=== PATIENT | female | born 1995 | race Caucasian/White ===

== ENCOUNTER 2023-01-18 00:08 | Inpatient (IN) | payer MEDICAID, SELFPAY ==
[2023-01-18] VITALS (222 sets, daily range): BP systolic 81–140; BP diastolic 43–109; PULSE 52–122; RESP 16; TEMP 36–36.6; O2SAT 96–100; BMI 38.0
--- NOTE | 2023-01-18 00:45 | LDADM ---
This patient, Seda May, was admitted to Labor/Delivery/Recovery 103 on 01/18/23 at 00:08. Plans for labor, pain management and were discussed with patient. Patient/family oriented to hospital policies and general routines including ID bracelet, bed and alarms, visiting hours, pain management, procedures, bathroom and other care routines, personal items, smoking policy, room service/diet and guest tray routines, security routines, and visiting hours. Patient/Family are encouraged to report perceived risks to care and to ask questions if they do not understand what they are told or what they should do. See OBIX for further documentation.
[2023-01-18 01:45] LABS: Basophils Percent Auto 0.2 % (0.2-1.2); Eosinophils Percent Auto 0.4 % (0-4.4); Hematocrit 32.8 % (37.0-47.0); Hemoglobin 10.8 g/dL (12.0-15.0); Immature Granulocyte Absolute 0.08 K/mm3 (0.00-0.031); Immature Granulocyte Percent A 0.8 % (0-0.5); Lymphocytes Absolute Auto 1.93 K/mm3 (0.9-3.2); Lymphocytes Percent Auto 20.2 % (18.3-44.2); Mean Corpuscular HGB Conc 32.9 g/dl (32-36); Mean Corpuscular Volume 91.1 fl (80-100); Mean Platelet Volume 10.3 fl (7.4-10.4); Monocytes Absolute Auto 0.6 K/mm3 (0.1-0.6); Monocytes Percent Auto 6.3 % (2.6-8.5); Neutrophils Absolute Auto 6.9 K/mm3 (1.3-6.7); Neutrophils Percent Auto 72.1 % (45.5-73.1); Platelet Count Result 264 k/mm3 (150-375); Red Cell Distribution Width 12.8 % (11.5-14.5); White Blood Count 9.6 K/mm3 (4.5-10.0)
[2023-01-18] MEDS: OXYTOCIN 30 UNITS/NS 500 ML 30 UNITS/500 ML BAG 6 UNITS IV CONT (02:00)
[2023-01-18] MEDS: LACTATED RINGERS 1,000 ML 125 ML IV CONT ×3 (02:00→13:31)
[2023-01-18 02:37] LABS: HIV 1/2 Ab P24 Ag Result Negative (Negative)
[2023-01-18] MEDS: ONDANSETRON INJ 4 MG/2 ML VIAL IV PUSH (09:04)
--- NOTE | 2023-01-18 09:33 | WPDOBADMIT ---
Obstetrics - Admit Note Admission Note: Patient presents for EIL at 40 weeks. AROM at 0830 of clear fluid.IUPC placed without issue. SVE record reviewed. No pertinent additions to the history and/or any subsequent changes in the physical findings that are not consistent with the expected course of the were found. Additions to the history and/or subsequent changes in the physical findings follow. None.
--- NOTE | 2023-01-18 10:59 | WPDANESEPPF ---
Anes - Initial Pre Proc Eval Date/Time: 01/18/23 10:59 Surgeon: Paul Malagon MD Pre Op Diagnosis: IOL Patient Data Age: 28 Gender: F Height: 1.7 m Weight: 110.223 kg Last Vital Signs Pulse 61 01/18/23 10:46 BP 114/63 01/18/23 10:46 Pulse Ox 98 01/18/23 10:56 O2 Del Method Room Air 01/18/23 05:52 Allergies Allergy/AdvReac Type Severity Reaction Status Date / Time Red Pepper Allergy Unknown Uncoded 08/10/17 15:49 Laboratory Tests 01/18/23 01:25 WBC 9.6 K/mm3 (4.5-10.0) RBC 3.60 L M/mm3 (4.2-5.4) Hgb 10.8 L g/dL (12.0-15.0) Hct 32.8 L % (37.0-47.0) MCV 91.1 fl (80-100) MCH 30.0 pg (26-34) MCHC 32.9 g/dl (32-36) RDW 12.8 % (11.5-14.5) Plt Count 264 k/mm3 (150-375) MPV 10.3 fl (7.4-10.4) Immature Gran % (Auto) 0.8 H % (0-0.5) Neut % (Auto) 72.1 % (45.5-73.1) Lymph % (Auto) 20.2 % (18.3-44.2) Mitchell % (Auto) 6.3 % (2.6-8.5) Eos % (Auto) 0.4 % (0-4.4) Baso % (Auto) 0.2 % (0.2-1.2) Lymph # (Auto) 1.93 K/mm3 (0.9-3.2) Mitchell # (Auto) 0.6 K/mm3 (0.1-0.6) Eos # (Auto) 0.0 K/mm3 (0-0.3) Baso # (Auto) 0.0 K/mm3 (0.0-0.1) Abs Immat Gran (auto) 0.08 H K/mm3 (0.00-0.031) Absolute Neuts (auto) 6.9 H K/mm3 (1.3-6.7) Absolute Nucleated RBC 0.0 K/mm3 (0.0-0.012) Nucleated RBC % 0.0 % (0.0-0.2) RPR Pending HIV 1&2 Ab/P24 Ag 4thGn Negative (Negative) Blood Type O Positive Antibody Screen Negative Patient hx anesthesia problems: none Family hx anesthesia problems: none Results Review: All pre-operative results and documents have been reviewed as part of the pre-operative evaluation. [facility] Family History Family History Grandparent Family history of cataracts Father Family history of alcoholism Family history of liver disease Family history of kidney disease Social History Social History Smoking packs per day: 1 Smoking cigarettes per day: 20.0 Years smoked: 8 Smoking pack-years: 8.00 Smoking status: Former smoker Tobacco type: cigarettes Second hand tobacco smoke exposure: No Smoking end date: 04/21/22 Alcohol intake: never Substance use: never Lack of Transportation: No Lack of Food: Never True Current Housing: I Have Housing Concerned About Future Housing: No Difficulty Paying Gas/Electric Bills: No Difficulty Paying for Meds: No Currently Unemployed: No Education: High School Diploma/GED Difficulty w/ Childcare or Family Care: No Spiritual care concerns: No Anes - Eval Final PreProcedure Day of Procedure 01/18/23 10:59 Patient weight: obese Heart: regular rate and rhythm Lungs: clear to auscultation Neurological: alert and oriented ASA classification: II Emergent: no Anesthetic plan: proceed Anesthesia type and monitoring: regional epidural and standard monitoring Results Review: All pre-operative results and documents have been reviewed as part of the pre-operative evaluation. Informed Consent: The patient's anesthetic plan and its attendant risks and benefits were discussed with the patient/family/POA. Questions were solicited and answers provided to the satisfaction of the patient/family/POA.
[2023-01-18] MEDS: ACETAMINOPHEN 500 MG TABLET 1000 MG PO (13:55)
[2023-01-18 14:26] LABS: Rapid Plasma Reagin Non-Reactive (NonReactive)
[2023-01-18] MEDS: OXYTOCIN 30 UNITS/NS 500 ML 30 UNITS/500 ML BAG 999 UNITS IV CONT (23:39)
--- NOTE | 2023-01-18 23:55 | PM.OBPRVD ---
OB - Delivery Note Procedure Delivery date: 01/18/23 Procedure: Induction method: AROM and Per Pitocin Protocol Delivery monitor: External FHT and Internal Uterine Route of delivery: Episiotomy description: None Laceration Description: Perineal - 1st Degree Delivery repair: vicryl Specimen: No Quantitative Blood Loss (ml): 50 Anesthesia type: Epidural Disposition: Floor Baby Date of : 01/18/23 Time of : 23:36 Weeks of gestation at delivery: 40 gender: Female presentation: vertex position: Left Occiput Anterior Placenta delivery description: Spontaneous Cord Vessel Description: 3 Vessels and Delayed Cord Clamping score one minute: 7 score five minutes: 9 Narrative: dr. hernandez and sierra cnm at for delivery, mother and baby in stable condition skin to skin
[2023-01-19] VITALS (34 sets, daily range): BP systolic 109–142; BP diastolic 58–112; PULSE 65–185; RESP 16–20; TEMP 36.3–37.2; O2SAT 98–100
[2023-01-19] MEDS: OXYTOCIN 30 UNITS/NS 500 ML 30 UNITS/500 ML BAG 125 UNITS IV CONT (00:02)
[2023-01-19] MEDS: IBUPROFEN 600 MG TABLET PO ×4 (01:46→23:50)
[2023-01-19] MEDS: WITCH HAZEL 40 PADS 1 PAD TOPICAL (01:49)
[2023-01-19] MEDS: BENZOCAINE 20% AER SPR (*SP) 56 GM CAN 1 SPRAY TOPICAL (01:49)
--- NOTE | 2023-01-19 02:06 | OBPPTRN ---
Patient transferred to post room #283 via w/c. Support person present. Oriented to unit, room, information board, rooming in, admission packet and security measures. Patient verbalizes understanding.
[2023-01-19] MEDS: ACETAMINOPHEN 325 MG TABLET 650 MG PO (02:50)
--- NOTE | 2023-01-19 08:17 | PM.OBPNVD ---
OB - PN: Subj Subjective Date/time seen: 01/19/23 08:17 Interval history: pp day 1 doing well c/o muscular pain OB - PN: Obj Data Labs 01/18/23 01:25 Labs: Laboratory Results - last 24 hr 01/18/23 01:25 RPR Non-reactive OB - PN A/P Plan day: 1 Plan: routine care Time Spent With Patient Time: Total time spent is greater than 50% in coordination of care (as documented) at patient's floor/unit and/or counseling patient: Review of Systems Review of Systems: All systems reviewed & are unremarkable except as noted in HPI and below Exam Const: General: cooperative, healthy appearing and comfortable Chest: Chest palpation & inspection: normal inspection of the chest Resp: Effort & Inspection: normal respiratory effort Cardio: Rate: regular rate Rhythm: regular rhythm GI: Other: soft Skin: General skin exam: normal color Neuro: General: patient oriented x3
[2023-01-19] MEDS: CYCLOBENZAPRINE HCL 5 MG TABLET PO ×2 (09:17→17:28)
[2023-01-19 09:49] LABS: Hematocrit 30.3 % (37.0-47.0)
--- NOTE | 2023-01-19 11:45 | PC.NURSE ---
Patient sleeping with in her arms when this RN went in to assess . Patient tapped on the arm and woken up by this RN and educated about safe sleep precautions for newborns. Patient states she is fine where she is . Patient agreeable to have this RN place in bassinet for assessment and leave her in there while she rests.
--- NOTE | 2023-01-19 13:36 | PC.NURSE ---
[id number] Introductions were made and mother states she is bottle feeding until her milk comes in. Mother has been instructed prior to meeting LC on the importance of consistent pumping to protect her milk supply. LC asked mother to call for a flange fit the next time she pumps. Mother voiced understanding of the information, request and states she doesn't have pain with pumping. Name was written on the communication board.
[2023-01-20] MEDS: CYCLOBENZAPRINE HCL 5 MG TABLET PO ×2 (00:15→09:53)
[2023-01-20] MEDS: DOCUSATE SODIUM 100 MG CAPSULE PO ×2 (04:34→09:50)
[2023-01-20] MEDS: ACETAMINOPHEN 325 MG TABLET 650 MG PO ×2 (04:34→09:50)
--- NOTE | 2023-01-20 07:28 | PC.NURSE ---
Entered mom's room to take VS and noticed that she was asleep in bed holding the baby. Woke mom to tell her RN wanted to take her VS and RN asked if I could put baby in the crib and advised mom to not sleep with baby in her arms. Mom would not let RN put baby in the crib but would let RN take her VS. Mom's VS taken. Mom alert and oriented x3 during interaction.
[2023-01-20 07:31] VITALS: BP 112/68; PULSE 65; RESP 18; TEMP 36.1; O2SAT 98
--- NOTE | 2023-01-20 08:30 | PC.NURSE ---
Pt introductions made and plan of care discussed per post , pain management, breast feeding, daily care activities and pending discharge to home. PT sole recipient of such instructions and no barriers to learning identified at this time. PT received such instructions per one to one discussion, mom baby care guide and demonstrations this shift. PT verbalized understanding of such care.
--- NOTE | 2023-01-20 09:03 | PM.OBPNVD ---
OB - PN: Subj Subjective Date/time seen: 01/20/23 09:03 Interval history: pp day 2 doing well c/o muscular pain would like d/c home OB - PN: Obj Data Labs 01/19/23 09:28 Labs: Laboratory Results - last 24 hr 01/19/23 09:28 Hgb 10.0 L Hct 30.3 L OB - PN A/P Plan day: 2 Plan: routine care and discharge home Time Spent With Patient Time: Total time spent is greater than 50% in coordination of care (as documented) at patient's floor/unit and/or counseling patient: Review of Systems Review of Systems: All systems reviewed & are unremarkable except as noted in HPI and below Exam Const: General: cooperative and healthy appearing Resp: Effort & Inspection: normal respiratory effort Cardio: Rate: regular rate Neuro: General: patient oriented x3
--- NOTE | 2023-01-20 09:05 | P.DS_ITS ---
DS: Admitting Diagnosis Discharge Date 01/20/23 Admitting Diagnosis IOL DS: Discharge Diagnosis Discharge Diagnosis (1) Vaginal delivery: Code(s): O80 - Encounter for full-term uncomplicated delivery Status: Acute (2) Muscular pain: Code(s): M79.10 - Myalgia, unspecified site Status: Acute OB - DS: Summary OB Procedures : None OB Procedures Intrapartum: Spontaneous Vag Delivery OB Procedures: : None Peripartum Data Laceration Description: Perineal - 1st Degree Episiotomy description: None Time Spent with Patient Time attestation: Total time spent providing and/or coordinating discharge services: DS: Data Data Completed and Pending Labs on day of discharge: Labs from last 24 hours 01/19/23 09:28 Hgb 10.0 L Hct 30.3 L Discharge Plan Discharge Attending physician on discharge: Lissy Rodriguez Discharging Clinician: Chelsea Villarreal Patient Disposition: Home, Self-Care Activity: pelvic rest Diet: regular Patient Instructions: Antibiotic Form Stand Alone Forms: General Discharge Information Follow-up/Referrals: Paul Malagon MD [Physician] - 4 Weeks Discharge Medications: New ibuprofen 600 mg Tablet 600 mg PO Q6H PRN (Reason: Cramping) Qty: 30 0RF cyclobenzaprine 5 mg tablet 5 mg PO TID PRN (Reason: muscle spasm) Qty: 14 0RF Date of admission: 01/18/23 00:08 Primary Care Provider: PHYSICIAN,KEEL PRESS OPERATOR Admitting Provider: Paul Malagon Attending physician on admission: Paul Malagon Condition: Stable
[2023-01-20] MEDS: MULTIVIT/MIN/PREN/FOL AC/IRON TABLET 1 TAB PO (09:52)
[2023-01-20] MEDS: IBUPROFEN 600 MG TABLET PO (09:52)
--- NOTE | 2023-01-20 11:32 | PCCCNOTE ---
Addendum entered by KEON Nation 01/20/23 11:34: Pt. also reports having supportive families to help. Original Note: Care Coordination note. Patient referred to CC for late care. Met with pt. and FOB at bedside. They report living in [facility], but wanted to have baby with our HOUSE RN. She even has naval gunfire liaison officer here. They plan to return home together today. They have all necessary baby care items and deny any needs. She has started process with WIC as well.
--- NOTE | 2023-01-20 14:00 | PC.NURSE ---
Patient downloaded the discharge video Mother & Baby Care, The First Two Weeks . Patient was given the opportunity and encouraged to ask questions. Patient verbalized understanding of information shared and has been given the mother/baby guide for home reference.
--- NOTE | 2023-01-20 14:30 | PC.NURSE ---
PT discharged to home ambulatory accompanied by fob and infant and walked to waiting car. Follow up appts confirmed
== END 2023-01-20 14:30 | disposition home or self-care (01) | DRG 560 ==
LOC: ANHOB2 01-20 09:14 → ANHLDR 01-21 11:21 → ANHOB2 01-21 11:21
PROVIDERS: Advanced Practice Midwife; Admitting Provider Obstetrics & Gynecology; Visit Provider Obstetrics & Gynecology
DX: O70.0 First degree perineal laceration during delivery (principal); Z37.0 Single live birth; M79.10 Myalgia, unspecified site; Z3A.40 40 weeks gestation of pregnancy; O99.893 Other specified diseases and conditions complicating puerperium
CPT/HCPCS: 36415; 85014; 85018; 85025; 86592; 86703; 86850; 86900; 86901; A9270; G0432; J2405; J2590; J2795; J7120

== ENCOUNTER 2024-09-24 06:08 | Inpatient (IN) | payer MEDICAID, SELFPAY ==
[2024-09-24] VITALS (189 sets, daily range): BP systolic 81–126; BP diastolic 25–110; PULSE 48–204; RESP 18; TEMP 36.2–36.9; O2SAT 85–100; BMI 37.9
--- OUTSIDE RECORDS SUMMARY | 2024-09-24 06:15 | XMS_ITS | Clinical Summary ---
Author Organization [facility] Address [address] [place] [id number] Care Team Providers Care Sludge Filtration Attendant Name Role Phone Unavailable Primary Care Provider Unavailabl e Social History Tobacco Use Types Packs/Day Years Used Date Smoking Tobacco: Never Assessed Comments Unknown Sex and Gender Information Value Date Recorded Sex Assigned at Not on file Legal Sex Female 4:38 PM CDT Gender Identity Not on file Sexual Orientation Not on file Last Filed Vital Signs Vital Sign Reading Time Taken Comments Blood Pressure 92/62 06/24/2015 4:46 PM CDT Pulse 71 06/24/2015 4:46 PM CDT Temperature - - Respiratory Rate - - Oxygen Saturation - - Inhaled Oxygen Concentration - - Weight 93.4 kg (206 lb) 06/24/2015 4:46 PM CDT Height 172.7 cm (5' 8) 06/24/2015 4:46 PM CDT Body Mass Index 31.32 06/24/2015 4:46 PM CDT Plan of Treatment Health Maintenance Due Date Last Done Comments Cervical Cancer Screening Pa p Smear (Age 30 to 64) Every 3 Years 1994 Annual Physical 1997 Hepatitis C 01/15/2012 DTaP, Tdap and Td Vaccines ( 1 - Tdap) 2013 Hepatitis B Vaccines (1 of 3 - 19+ 3-dose series) 2013 COVID-19 Vaccine (2023-2 5 season) 2023 Cervical Cancer Screening Pa p with HPV Testing (Age 30 to 64) Every 5 Years 01/15/2024 Cervical Cancer Screening with HPV 01/15/2024 HPV Vaccines Aged Out No longer eligi ble based on patient's age to complete this topic Meningococcal B Vaccine Aged Out No l onger eligible based on patient's age to complete this topic Meningococcal Vaccine Aged Out No andie omar eligible based on patient's age to complete this topic Pneumococcal Vaccine: Pediat rics (0 to 5 Years) and At-Risk Patients (6 to 49 Years) Aged Out No longer eligible b ased on patient's age to complete this topic RSV Immunizations Under 20 Months Aged Out No longer eligible based on patient's age to complete this topic
--- OUTSIDE RECORDS SUMMARY | 2024-09-24 06:15 | XMS_ITS | Data Portability ---
Author Organization [facility] [place] Address [address] [place] [address] [place] [address] Assessment No assessment recorded. Plan of Treatment Reminders Order Date Submit Date Provider Last Modified By Organization Details Last Modified Time Details Appointments INDUCTION 2024 06:00A M LUPE LAYNE MD Not available Not available Not available Lab None recorded. Referral None recorded. Procedures None recorded. Surgeries None recorded. Imaging non-stres s test 2024 025 [place], [address], [place], [address], 09/19/2024 04:41:02 US, obstetric , biophysic al profile + non-stres s test 2024 025 [email or web address] [place] [facility] [address], [place], [address], 09/18/2024 12:07:28 non-stres s test 2024 025 [email or web address] [place], [facility] [address], [place], [address], 09/13/2024 10:20:50 US, obstetric , follow-up 2024 025 ERICKA [place], [address], [place], [address], 09/12/2024 16:13:02 US, obstetric , biophysic al profile + non-stres s test 2024 025 ERICKA [place], [address], [address], [place], [address], 09/12/2024 17:49:52 Medication Orders None recorded. Patient TargetsNo targets recorded. Patient InstructionsNo instructions recorded. Reason for Referral None Reported. Results Created Date Observation Date Name Description Value Unit Range Abnormal Flag Note LastModifiedBy Organization Detail LastModifiedTime 08/29/1908/28/2024 CULTU RE: GROUP B STREP SCREE N, REFLE X SUSCE PTIBI LITY result report SEE RESULT S BELOW abnormal Test: Cultu re: Group B Strep , Refle x Susce ptibi lity ([facility] ) Speci men Sourc e: Vagin a/Rec sudarshan Speci men Type: Vagin al/Re ctal Speci men Date: 2024 1340 Resul t Date: 2024 1625 Resul t Statu s: Final resul t Abnor mal: Yes Resul ting Lab: [facility] [address] [facility] [address] Tel: CULTU RE ----- ----- ----- --- Posit jenny for Strep tococ cus agala ctiae (Grou p B) (Abno rmal) Clind amyci n susce ptibl e, eryth romyc in resis tant. The clind amyci n induc tion test (D-t est) is negat jenny, there fore clind amyci n shoul d be clini gaby effec tive again st this isola te. Not Available [facility] (Lab) [address], [place], [address], 09/01/2024 17:29:00 08/16/19 25 08/15/2024 US, obste tric, follo w-up No observ ation record ed. [email or web address] [place] [address], [place], [address], 08/15/2024 17:31:15 08/16/19 25 08/15/2024 US, obste tric, follo w-up No observ ation record ed. [email or web address] [address], [place], [address], 08/15/2024 21:37:41 09/06/19 25 09/05/2024 non-s tress test No observ ation record ed. [email or web address], [place], [address], 09/05/2024 16:24:24 09/12/19 non-s tress test No observ ation record ed. [email or web address], [place], [address], 09/11/2024 17:16:52 09/13/19 25 09/12/2024 US, obste tric, follo w-up No observ ation record ed. [facility] [address], [place], [address], 09/12/2024 17:49:42 09/13/19 25 09/12/2024 US, obste tric, bioph ysica l profi le + non-s tress test No observ ation record ed. [facility] [address], [place], [address], 09/12/2024 17:49:52 09/13/19 25 09/12/2024 US, obste tric, follo w-up No observ ation record ed. [email or web address] [address], [place], [address], 09/12/2024 17:06:18 09/13/19 25 09/12/2024 non-s tress test No observ ation record ed. [email or web address] [place] [address], [place], [address], 09/12/2024 16:07:38 09/19/19 25 09/18/2024 US, obste tric, bioph ysica l profi le + non-s tress test No observ ation record ed. [email or web address] [place] [address], [place], [address], 09/18/2024 13:07:14 09/19/19 25 09/18/2024 US, obste tric, bioph ysica l profi le + non-s tress test No observ ation record ed. ERICKA [address] [facility], [place], [address], 09/22/2024 14:20:19 09/19/19 25 09/18/2024 non-s tress test No observ ation record ed. [email or web address] [place] [address], [place], [address], 09/18/2024 12:16:50 Result Notes None recorded. Problems Name Problem SNOMED Code Status Onset Date Resolution Date Notes Provider Name and Address Organization Details Recorded Time Pregnanc y 79250152 Completed 202202/02/2023 Adri boyce, [facility] 5 12:45:51 Sciatica 03750230 Completed Britaney Leonardo null, [facility] 3 10:28:06 COVID-19 368004479 Completed Britaney Leonardo null, [facility] 3 10:28:06 Depressi ve disorder 27551824 Completed trazodon e (stopped ) and zoloft Vinitaaney Leonardo null, [facility] 3 10:28:06 Polycyst ic ovary syndrome 422585635 Completed previous ly on metformi n Britaney Leonardo [facility], [facility] 3 10:28:06 Atypical squamous cells of undeterm ined signific ance on cervical Papanico laou smear 847295619 Completed HPV neg 06/2022, repeat 06/2025 Marvel Patterson [facility], [facility] 3 10:28:06 Pregnanc y 64741936 Active 2024 Adri Roa null, [facility] 5 12:45:51 Placenta l finding 435665626 Active cyst Radha Pineda [facility], [facility] 5 22:52:16 Placenta l finding 320383445 Active cyst Radha Pineda [facility], [facility] 5 22:52:16 Placenta circumva llata 7263846 Active mild 32wk growth Radha Pineda [facility], [facility] 5 22:52:40 Placenta circumva llata 5797113 Active mild 32wk growth Radha Pineda [facility], [facility] 5 22:52:40 Group B Streptoc occus carrier 5826417247 103 Active 2024 Treat in labor Radha Pineda [facility] 5 10:48:03 Body mass index 30+ - obesity 898149183 Active 2024 weekly antenata l testing at 37 weeks LUPE LAYNE MD [address], [place], [address], [facility] 5 15:18:01 Problem Notes None recorded. Procedures Surgical History Date Name Laterality Status Provider Name and Address Organization Details Recorded Time 07/12/2022 Date of Last Pap Smear completed Nimisha Godfrey [facility] 12/23/2022 15:20:57 Imaging Results None recorded. Procedure Notes None recorded. Medical Equipment None Reported. Allergies Allergen ID Allergen Name Allergen Category Reaction Reaction Severity Criticality Documentation Date Start Date Code Code System Note Provider Name and Address Organization Details Recorded Time 50264 mold extract environme nt Not available Not available Not available 04/04/2024 76784 8 RxNorm Adri Janina [facility] 15:00:30 No known drug allergies Medications Name Sig Start Date Stop Date Status Note LastModified by Organization Details LastModified Time Prescriptio n - Prior Authorizati on Request active Not Available Not Available N ot Available fluconazole 150 mg tablet TAKE 1 TABLET BY MOUTH 1 DOSE active Not Available Not Available No t Available sertraline 100 mg tablet TAKE 1 TABLET BY MOUTH EVERY DAY active Not Available Not Available No t Available Zoloft 25 mg tablet Take 1 tablet every day by oral route. 11/13 completed Not Available Not Available Not Available sertraline 50 mg tablet TAKE 1 TABLET BY MOUTH EVERY DAY 06/13 completed Not Available Not Available Not Available Tylenol 11/13 completed Not Available Not Available Not Available Complete DHA 29 mg iron-1 mg-200 mg oral pack take 1 pack daily 2024 active Not Available Not Available Not Avai lable Se-Janell 19 Chewable 29 mg iron-1 mg tablet active Not Available Not Available No t Available 85-iron 40 mg,10 mg-folic ac 1 mg-dha 300 mg-fish oil capsule take 1 tablet daily 06/13 completed Not Available Not Available Not Available [employer]-PNV-DHA 28 mg iron-1 mg-200 mg capsule Take 1 capsule every day by oral route as directed for 30 days. 07/11 completed Not Available Not Available Not Available Plus DHA 27 mg iron-1 mg-312 mg-250 mg oral pack Take 1 pack every day by oral route. 06/13 completed Not Available Not Available Not Available Se- 19 29 mg iron-1 mg tablet TAKE 1 TABLET BY MOUTH EVERY DAY 07/11 completed Not Available Not Available Not Available Vitals Date Recorded Body height Body mass index (BMI) Body weight Body height Body mass index (BMI) Body weight Systolic And Diastolic Systolic And Diastolic Provider Name and Address Organization Details Last Updated DateTime 170.18 cm 38.5 kg/m2 368342. 72 g 170.18 cm 38.5 kg/m2 583014. 72 g 98/65 mm[Hg] 98/65 mm[Hg] KARYN Beauchamp [facility] 15:20:46 Date Recorded Body height Body mass index (BMI) Body weight Systolic And Diastolic Provider Name and Address Organization Details Last Updated DateTime 09/18/2024 170.18 cm 38.4 kg/m2 629051.13 g 116/80 mm[Hg] Nimisha Godfrey [facility] 09/18/2024 12:10:14 Social History Question Answer Notes LastModified by Organizat ion Details LastModified Time Tobacco Smoking Status Former Smoker stopped smoking when found out she was Nimisha Godfrey [facility] 12/23/2022 12:45:47 If You Are , What Was Your Level Of Alcohol Consumption Prior To ? Occasional Information not available 07/11/2024 Are You Blind Or Do You Have Difficulty Seeing? No Information not available 04/04/2024 What Is Your Level Of Caffeine Consumption? Occasional [email or web address] Information not available 07/11/2024 In The 14 Days Before Symptom Onset, Have You Had Close Contact With A Laboratory-confi rmed COVID-19 While That Case Was Ill? No [email or web address] Information not available 04/04/2024 In The 14 Days Before Symptom Onset, Have You Had Close Contact With A Person Who Is Under Investigation For COVID-19 While That Person Was Ill? No [email or web address] Information not available 04/04/2024 Have You Been To An Area Known To Be High Risk For COVID-19? No [email or web address] Information not available 04/04/2024 Are You Deaf Or Do You Have Serious Difficulty Hearing? No [email or web address] Information not available 04/04/2024 Do You Use Your Seat Belt Or Car Seat Routinely? Yes [email or web address] Information not available 04/04/2024 Are You Sexually Active? Yes [email or web address] Information not available 04/04/2024 Do You Have Smoke And Carbon Monoxide Detectors In Your Home? Yes [email or web address] Information not available 04/04/2024 Do You Use Sunscreen Routinely? Yes [email or web address] Information not available 04/04/2024 Do You Have Difficulty Walking Or Climbing Stairs? No [email or web address] Information not available 04/04/2024 Sex: Unknown Functional Status Question Answer Note LastModified by Organizat ion Details LastModified Time What is your level of alcohol consumption? None [email or web address] Information not available 07/11/2024 Are you able to walk? YESWOREST [email or web address] Information not available 04/04/2024 Are you able to care for yourself? Yes [email or web address] Information not available 04/04/2024 Do you have difficulty dressing or bathing? No [email or web address] Information not available 04/04/2024 Mental Status None recorded. Family History Relationship Description Onset Age of this Age Resolved Age Notes LastModified by Organization Details LastModified Time Mother Disorder of thyroid gland [email or web address] Not available 2022 14:21:05 Maternal Grandfather Disorder of thyroid gland [email or web address] Not available 2022 14:21:05 Maternal Aunt Disorder of thyroid gland [email or web address] Not available 2022 14:21:05 Medical History Condition Response Allergies (Food, seasonal, environmental ) N Other N Breast Cancer N Drug/Latex Allergies/Reactions N Blood Transfusion N Dermatologic Disorders N Lung Disease N Defects or Inherited Disease N Breast Problem N Gestational Diabetes N Hematologic disorders N Anesthesia Complications N History of STI N Deep Vein Thrombosis N Polycystic ovary syndrome Y Anxiety Disorder Y Autoimmune disease N Arthritis N Infertility N Polyps N Acid Reflux (GERD) N History of abnormal pap N Cancer N Stroke N Varicosities N Neurologic/Epilepsy N Endometriosis N High Cholesterol N Headaches N Fibromyalgia N Kidney Disease N Heart Problems N Kidney or Bladder Problems N Thyroid Problems N GI Problems N Eating Disorder N Anemia N Art (IVF or FET) N Psychiatric Illness N Ovarian Cancer N Diabetes N Pulmonary (TB, Asthma) N Hepatitis/Liver Disease N No Past Medical History N Eczema N Urinary Tract Infection N Abuse/Domestic Violence N Asthma N Trauma/Violence N Depression/ depression Y Heart Disease N Pre-Eclampsia N Hypertension N Osteoporosis N Thrombophilias N Gynecological History Statement/Question Response Abnormal Pap N Date of Last Colonoscopy Date of Last Mammogram Date of LMP 10/10/2023 Sexually Active? Y Date of DEXA bone scan Date of Last Pap Smear 07/12/2022 Sexual Problems? N Current Control Method LMP Approximate Obstetrics History GPAL:G 2 P 1 0 0 1 Type Value Full Term 1 Living 1 Total 2 Past Encounters Encounter ID Performer Location Encounter Start Date Encounter Closed Date Diagnosis/Indication Diagnosis SNOMED-CT Code Diagnosis ICD10 Code Diagnosis Note [id number] Danilo Rodirguez MD [place] [address],[place] [address] 12/23/2022 10:45:14 12/24/2022 10:54:10 Routine care 388513192 Z34.03 screening 2437 72625 Z36.89 [id number] Danilo Rodriguez MD [place] [address],[place] [address] 12/23/2022 10:48:57 12/23/2022 12:40:33 screening 967521676 Z36.3 O09.30 Z3A.36 [id number] LUPE LAYNE MD [place] [address],[place] [address] 01/10/2023 16:30:09 01/11/2023 09:43:59 Gestation period, 39 weeks 77114056 Z3A.39 Depressive disorder 9516 1647 F32.A [id number] MD Alex DAIZ [address],[place] [address] 01/17/2023 17:13:00 01/18/2023 09:21:54 [id number] LUPE LAYNE MD [place] [address],[place] [address] 01/25/2023 17:23:42 01/26/2023 08:47:13 Laceration of vagina 488914720 S31.41XA - laceration well healed, no evidence of dehiscence - recommende d pelvic rest until visit Depressive disorder 9983 3454 F32.A - hx of depression prior to , previously on zoloft and trazodone- discussed baby blues vs depression - EPDS completed, no to question #10- will restart zoloft at 25mg, can increase to 50mg (prior dose) after 2 weeks if needed- discussed safety with breastfeed ing management 278 064922 Z39.1 - discussed pumping q2-3 hours, latching baby when desired- continue supplement ation as needed [id number] LUPE LAYNE MD [place] [address],[facility] [place] [address] 02/18/2023 14:27:34 02/22/2023 09:07:54 care 704426440 Z39.2 S/p 4 weeks ago here today for a visit.1. Patient recovering well2. Plans to continue combo feeding3. Unsure, may be interested in IUD for contracept ion at this time. Risks, benefits, and alternativ es reviewed with the patient. Will call if she decides to go ahead with placement, safe sex practices reviewed4. Patient instructed to follow up in 1 year for well woman exam unless need arises prior Depressive disorder 8970 0390 F32.A - hx of depression prior to , previously on zoloft and trazodone- EPDS 11, stable from last visit- has not yet restarted Zoloft, would like to wait as she feels stable now [id number] LUPE LAYNE MD [place] [address],[place] [address] 11/14/2023 16:15:55 11/15/2023 09:35:41 [id number] Danilo Rodriguez MD [place] [address],[place] [address] 04/02/2024 13:02:16 04/02/2024 13:47:42 screening 091825424 Z36.87 Z3A.15 [id number] LUPE LAYNE MD [place] [address],[facility] [place] [address] 04/04/2024 14:52:05 04/04/2024 15:30:44 test positive 662822405 Z32.01 1. Exam today within normal limits.2. Ultrasound today confirms GA and viability. EDC . GC/Clamydi a testing done: will f/u as indicated. 4. ACOG guidelines and plan of care for reviewed with patient. All questions answered.5 . Return to office in 4-5 weeks for anatomy US6. New OB labs ordered7. Genetic screening: desires. [id number] Danilo Rodriguez MD [place] [address],[place] [address] 05/07/2024 11:23:40 05/07/2024 12:47:53 screening for malformation 934822909 Z36.3 Z3A.20 [id number] LUPE LAYNE MD [place] [address],[place] [address] 05/07/2024 11:24:22 05/10/2024 01:19:50 Routine care 023178253 Z34.02 - continue PNV [id number] LUPE LAYNE MD [place] [address],[place] [address] 06/13/2024 12:17:26 06/13/2024 15:57:55 Right side sciatica 9787579863 59956 M54.31 - worsening pain, has tried heat/ice and massage with no improvemen t- referral sent to pelvic floor PT 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 - previously well controlled with zoloft 50mg- worsening fatigue, depressive symptoms, and lack of motivation - will increase sertraline to 100mg and send psych referral Routine an tenatal care 636759440 Z34.02 - continue PNV Gestation period, 25 weeks 63108564 Z3A.25 [id number] Danilo Rodriguez MD [place] [address],[place] [address] 06/13/2024 12:17:45 06/13/2024 13:19:31 screening 648669679 Z36.2 O99.210 Z3A.25 [id number] Danilo Rodriguez MD [place] [address],[place] [address] 07/11/2024 13:57:18 07/11/2024 14:54:40 anatomy study 386988393 Z36.2 O43.113 Z3A.29 [id number] [facility] [address],[place] [address] 07/11/2024 13:57:35 07/12/2024 11:41:00 Gestation period, 29 weeks 76109223 Z3A.29 continue vitamin [id number] Danilo Rodriguez MD [place] [address],[place] [address] 08/15/2024 14:59:05 08/15/2024 16:13:32 Placenta circumvallata 1265688 O43.113 Z3A.34 [id number] Chelsea Villarreal [facility] [address],[place] [address] 08/15/2024 14:59:22 08/16/2024 16:51:31 Gestation period, 34 weeks 72756859 Z3A.34 [id number] LUPE LAYNE MD [place] [address],[place] [address] 08/28/2024 13:33:04 08/28/2024 14:46:01 Gestation period, 36 weeks 26314602 Z3A.36 - GBS collected- desires EIL on 09/24 [id number] LUPE LAYNE MD [place] [address],[place] [address] 09/04/2024 11:31:40 09/04/2024 12:53:29 Group B Streptococcus carrier 9365599011 103 Z22.330 - antibiotic s in labor Body mass index 30+ - obesity 741679871 Z68.38 - continue weekly testing Gestation period, 37 weeks 28464356 Z3A.37 - continue PNV [id number] Danilo Rodriguez MD [place] [address],[place] [address] 09/05/2024 09:00:08 09/05/2024 16:29:02 Maternal obesity complicating , childbirth and the puerperium, antepartum 3673273667 07 O99.210 E66.89 [id number] LUPE LAYNE MD [place] [address],[place] [address] 09/12/2024 14:06:33 09/12/2024 14:48:12 Placenta circumvallata 5214466 O43.113 O99.213 Z3A.38 [id number] LUPE LAYNE MD [place] [address],[place] [address] 09/12/2024 14:06:43 09/12/2024 15:30:39 Maternal obesity complicating , childbirth and the puerperium, antepartum 4355287733 07 O99.210 [id number] MD Alex DIAZ [address],[place] [address] 09/12/2024 14:07:03 09/12/2024 15:20:53 Placenta circumvallata 2766938 O43.113 O99.213 Z3A.38 - normal growth US today Body mass index 30+ - obesity 823125778 E66.9 - continue weekly testing- BPP 12/28 today Gestation period, 38 weeks 48466569 Z3A.38 - continue PNV [id number] MD Alex DIAZ [address],[place] [address] 09/18/2024 11:07:23 09/18/2024 11:46:39 Obesity 641443791 O99.213 Z3A.39 - continue weekly testing- BPP 12/28 today [id number] MD Ani [place] [address],[place] [address] 09/18/2024 11:07:44 09/18/2024 12:22:49 Maternal obesity complicating , childbirth and the puerperium, antepartum 6944416770 07 O99.210 E66.09 [id number] LUPE LAYNE MD [place] [address],[place] [address] 09/18/2024 11:08:02 09/18/2024 12:56:43 care status 118854133 Z34.83 - continue PNV Health Concerns Section Related Observation LastModified by Organization Detai ls LastModified Time None Recorded Concern Status LastModified by Organization Details LastModified Time None Recorded Advance Directives Directive None Recorded Payers Insurance Date Sequence Insurance Name Policy Number Policy Tamayo Covered Member ID Tamayo Member ID Guarantor Name 08/15/2024 1 [place] DEPARTMENT OF PUBLIC AID Seda May [id number] Seda May 09/18/2024 1 [facility] - DOS ON OR AFTER 20 (MEDICAID REPLACEMENT - HMO) Seda May [id number] Seda May 08/15/2024 [facility] [place] - DOS ON OR AFTER 20 (MEDICAID REPLACEMENT - HMO) Seda May [id number] Seda May OBGyn Episode Ob Episode Information Episode Created Date Number of Fetuses Patient Bloodtype Patient rh Status Prepregnancy Weight lbs Domestic Partner Domestic Partner Phone Father Name Plant Anatomy Teacher Status 12/24/19 23 1 O Positive CLOSED Fetus Data First Name Last Name Admitted to NICU Weight (g) Sex Living Outcome Pediatric Complications Fetus ID Race Codes Race Delivery Type 3260.19 25 F true Full Term [id number] Vaginal Delivery Problems Problem Notes Problem Name Start Date End Date Resolution Snomed Code Not e Depressive disorder 26502741 trazodone (stopped) and zoloft Polycystic ovary syndrome 480922101 previously on metformin Atypical squamous cells of undetermined significance on cervical Papanicolaou smear 422064784 HPV neg 06/2022, repeat 06/2025 COVID-19 210737297 Sciatica 71549613 Angel Calculation Initial Angel Date Initial Exam Date Initial Exam Provider Initial Ultrasound Date Last Menstrual Period Date Ultra Sound Weeks Gestation 01/17/2023 12/23/2022 06/29/2022 11 Eighteen To Twenty Week Angel Update Ultra Sound Date Fundal Height At Umbil Quickening Date Ultra Sound Latest Weeks Gestation Final Angel Confirmed By Final Angel Confirmed Date Final Angel Date Ultra Sound Latest Days Gestation 0 [email or web address] 12/23/2022 01/18/20 23 0 Pre-janell Flowsheet Flowsheet Date 12/23/2022 Thomas Score Blood Edema Fundus Height Fundus Units Glucose Ketones Leukocytes Nitrite Labor Signs Protein Cervic Dilation Cervic Effacement Cervic Station Type Weight in lbs Pre/Post Dialysis Refused Weight 234.287523825410 BP Diastolic BP Location Tested BP Systolic BP Type 73 R arm 124 sitting Fetus Heart Rate Present Fetus Movement Comments 27 year-old 1 at 36 weeks gestation who presents for initial care in our office. She has had some care. The documentation is minimal. Limited OB ultrasound today showed normal anatomy, dating information was available. Growth is good, to evaluate laboratory information to determine if labs are needed. To begin routine care in our office. Flowsheet Date 01/10/2023 Thomas Score Blood Edema Fundus Height Fundus Units Glucose Ketones Leukocytes Nitrite Labor Signs Protein Cervic Dilation Cervic Effacement Cervic Station 2cm 70% -2 Type Weight in lbs Pre/Post Dialysis Refused Weight 239.754656088407 BP Diastolic BP Location Tested BP Systolic BP Type Fetus Heart Rate Present A 130 Fetus Movement Comments Presents for follow up care. No contractions, LOF or VB. Good movement. Discussed spontaneous labor vs EIL. Patient would like EIL at 40 weeks on 01/17 if not in labor prior to that. Dating by 12 week US at previous doctor. Just moved from [place]. Discussed labor signs. EIL scheduled for 01/17 at midnight. Flowsheet Date 01/17/2023 Thomas Score Blood Edema Fundus Height Fundus Units Glucose Ketones Leukocytes Nitrite Labor Signs Protein Cervic Dilation Cervic Effacement Cervic Station Type Weight in lbs Pre/Post Dialysis Refused Weight 243.86336833700 BP Diastolic BP Location Tested BP Systolic BP Type 82 124 Fetus Heart Rate Present A 150 Fetus Movement A Yes Comments Doing well, baby very active . No contractions, LOF, VB. Induction scheduled for midnight tonight, discussed plan. Patient plans on , pump given last visit. All questions answered. Flowsheet Date 01/25/2023 Thomas Score Blood Edema Fundus Height Fundus Units Glucose Ketones Leukocytes Nitrite Labor Signs Protein Cervic Dilation Cervic Effacement Cervic Station Type Weight in lbs Pre/Post Dialysis Refused Weight 221.592791070359 BP Diastolic BP Location Tested BP Systolic BP Type 84 129 Fetus Heart Rate Present Fetus Movement Comments Menstrual History Last Menstrual Date Menses Monthly On Bcp Conception Prior Menses Frequency Hcg Plus Date Menarche Onset Age Genetic Screening And Infection History Question Response Note Mental Retardation/Autism false Patient's Age Will Be 35 Years Or Older At Estim ated Date of Delivery false Thalassemia (Persian, Korean, Mediterranean, Or Background): MCV < 80 false Neural Tube Defect (Meningomyelocele, Spina Bifi da, Or Anencephaly) false Congenital Heart Defect false Down Syndrome false Wyatt-Sachs (eg, Quaker, Cajun, Lithuanian-[place]) f alse Jassi Disease false Sickle Cell Disease Or Trait () false Hemophilia Or Other Blood Disorders false Muscular Dystrophy false Cystic Fibrosis false Jumping Branch's Chorea false Intellectual Disability/Autism false If Yes, Was Person Tested For Fragile X? false Other Inherited Genetic Or Chromosomal Disorder false Maternal Metabolic Disorder (eg, Type 1 Diabetes , PKU) false Patient Or Baby's Father Had A Child With Defects Not Listed Above false Recurrent Loss, Or A Stillbirth false Medications (including Suppl ements, Vitamins, Herbs, OTC Drugs), Illicit/Recreational Drugs, Alcohol false If Yes, Agent(s) And Strength/Dosage false Any Other Genetic History false Live With Someone With TB Or Exposed To TB false Patient Or Partner Has History Of Genital Herpes false Rash Or Viral Illness Since Last Menstrual Perio d false History Of STD, Gonorrhea, Chlamydia, HPV, Syphi lis false Other Infection History false History of HIV false History of Hepatitis false Prior GBS-infected child false Hemoglobinopathy Or Carrier false Other Structural Defect false Recent Travel History Outside of Country false Delivery Information Delivery Date Delivery Type Labor Anesthesia Weeks Gestation Incision Type Labor Labor Length Hrs Delivered By Post Complications Tubal Sterilization Discharge Date Comments 3 Induce d Regional-Ep idural 40.1 false Lupe Layne MD Atypical squamous cells of undetermi sanjiv significa nce on cervical Papanicol aou smear, COVID-19, Depressiv e disorder, Polycysti c ovary syndrome, Sciatica Discharge Information Feeding Method Contraceptive Method Maternal HG B and HCT Levels Ob Episode Information Episode Created Date Number of Fetuses Patient Bloodtype Patient rh Status Prepregnancy Weight lbs Domestic Partner Domestic Partner Phone Father Name Plant Anatomy Teacher Status 05/07/19 25 1 O Positive 228 OPEN Fetus Data First Name Last Name Admitted to NICU Weight (g) Sex Living Outcome Pediatric Complications Fetus ID Race Codes Race Delivery Type [id number] Problems Problem Notes Problem Name Start Date End Date Resolution Snomed Code Not e Placental finding [id number] cy st Placenta circumvallata [id number] mild 32wk growth us Body mass index 30+ - obesity 09/12/2024 [id number] weekly antenata l testing at 37 weeks Group B Streptococcus carrier 09/03/2024 [id number] Treat in labor Angel Calculation Initial Angel Date Initial Exam Date Initial Exam Provider Initial Ultrasound Date Last Menstrual Period Date Ultra Sound Weeks Gestation 09/24/2024 05/07/2024 04/02/2024 15 Eighteen To Twenty Week Angel Update Ultra Sound Date Fundal Height At Umbil Quickening Date Ultra Sound Latest Weeks Gestation Final Angel Confirmed By Final Angel Confirmed Date Final Angel Date Ultra Sound Latest Days Gestation 0 09/25/19 25 0 Pre- Flowsheet Flowsheet Date 05/07/2024 Thomas Score Blood Edema Fundus Height Fundus Units Glucose Ketones Leukocytes Nitrite Labor Signs Protein Cervic Dilation Cervic Effacement Cervic Station Type Weight in lbs Pre/Post Dialysis Refused BP Diastolic BP Location Tested BP Systolic BP Type Fetus Heart Rate Present Fetus Movement Comments Flowsheet Date 05/07/2024 Thomas Score Blood Edema Fundus Height Fundus Units Glucose Ketones Leukocytes Nitrite Labor Signs Protein Cervic Dilation Cervic Effacement Cervic Station neg none Type Weight in lbs Pre/Post Dialysis Refused Weight 230.241333390366 BP Diastolic BP Location Tested BP Systolic BP Type 62 L arm 107 sitting Fetus Heart Rate Present A Present Fetus Movement A Yes Comments Doing well, no issues. No cr amping or bleeding. Anatomy incomplete today, need LVOT and RVOT. Placental cyst and mild circumvallate placenta seen. EFW 58%. Repeat in 4 weeks. LR male NIPT! Other labs wnl at new OB labs. RTC 4 weeks. Flowsheet Date 06/13/2024 Thomas Score Blood Edema Fundus Height Fundus Units Glucose Ketones Leukocytes Nitrite Labor Signs Protein Cervic Dilation Cervic Effacement Cervic Station Type Weight in lbs Pre/Post Dialysis Refused BP Diastolic BP Location Tested BP Systolic BP Type Fetus Heart Rate Present Fetus Movement Comments Flowsheet Date 06/13/2024 Thomas Score Blood Edema Fundus Height Fundus Units Glucose Ketones Leukocytes Nitrite Labor Signs Protein Cervic Dilation Cervic Effacement Cervic Station neg none Type Weight in lbs Pre/Post Dialysis Refused Weight 234.875354615643 BP Diastolic BP Location Tested BP Systolic BP Type 73 L arm 114 sitting Fetus Heart Rate Present A 155 Fetus Movement A Yes Comments Good movement. No cram ping or bleeding. Having worsening pelvic and sciatic pain. Will send referral for pelvic floor PT. Also reports worsening depressive symptoms, including lack of motivation, fatigue and feeling down. No SI/HI. Feels safe at home. Will increase zoloft to 100mg and send referral to psych. EFW 71%, LVOT seen, RVOT poorly visualized; will repeat at next visit. Discussed GCT and labs for next visit. Anechoic placental area unchanged. RTC 3 weeks. Flowsheet Date 07/11/2024 Thomas Score Blood Edema Fundus Height Fundus Units Glucose Ketones Leukocytes Nitrite Labor Signs Protein Cervic Dilation Cervic Effacement Cervic Station Type Weight in lbs Pre/Post Dialysis Refused BP Diastolic BP Location Tested BP Systolic BP Type Fetus Heart Rate Present Fetus Movement Comments Flowsheet Date 07/11/2024 Thomas Score Blood Edema Fundus Height Fundus Units Glucose Ketones Leukocytes Nitrite Labor Signs Protein Cervic Dilation Cervic Effacement Cervic Station neg none Type Weight in lbs Pre/Post Dialysis Refused 239.154249279823 BP Diastolic BP Location Tested BP Systolic BP Type 75 115 Fetus Heart Rate Present Fetus Movement A Yes Comments Patient has had some nausea. anatomy complete, LVEIF not visualized, precautions and education, ok for tdap f/u 2 weeks Flowsheet Date 08/15/2024 Thomas Score Blood Edema Fundus Height Fundus Units Glucose Ketones Leukocytes Nitrite Labor Signs Protein Cervic Dilation Cervic Effacement Cervic Station Type Weight in lbs Pre/Post Dialysis Refused BP Diastolic BP Location Tested BP Systolic BP Type Fetus Heart Rate Present Fetus Movement Comments Flowsheet Date 08/15/2024 Thomas Score Blood Edema Fundus Height Fundus Units Glucose Ketones Leukocytes Nitrite Labor Signs Protein Cervic Dilation Cervic Effacement Cervic Station neg none Type Weight in lbs Pre/Post Dialysis Refused 241.06916910195 BP Diastolic BP Location Tested BP Systolic BP Type 66 100 Fetus Heart Rate Present Fetus Movement A Yes Comments Patient is having back pain and nausea. efw 73%, +FM NST R vertex reviewed US, f/u 2 weeks with gbs Flowsheet Date 08/28/2024 Thomas Score Blood Edema Fundus Height Fundus Units Glucose Ketones Leukocytes Nitrite Labor Signs Protein Cervic Dilation Cervic Effacement Cervic Station neg none 1cm 60% -3 Type Weight in lbs Pre/Post Dialysis Refused Weight 244.506169193402 BP Diastolic BP Location Tested BP Systolic BP Type 65 97 Fetus Heart Rate Present A 145 Fetus Movement A Yes Comments Good movement. No cram ping or bleeding. GBS collected. SVE 1cm. Desires EIL at 40 weeks, will schedule. RTC 1 week. Flowsheet Date 09/04/2024 Thomas Score Blood Edema Fundus Height Fundus Units Glucose Ketones Leukocytes Nitrite Labor Signs Protein Cervic Dilation Cervic Effacement Cervic Station Type Weight in lbs Pre/Post Dialysis Refused Weight 244.039736973126 BP Diastolic BP Location Tested BP Systolic BP Type 85 L arm 129 sitting Fetus Heart Rate Present Fetus Movement Comments Flowsheet Date 09/04/2024 Thomas Score Blood Edema Fundus Height Fundus Units Glucose Ketones Leukocytes Nitrite Labor Signs Protein Cervic Dilation Cervic Effacement Cervic Station Type Weight in lbs Pre/Post Dialysis Refused Weight 244.462030514208 BP Diastolic BP Location Tested BP Systolic BP Type 85 L arm 129 sitting Fetus Heart Rate Present A 135 Fetus Movement A Yes Comments Good movement. No cram ping or bleeding. No LOF. GBS positive, discussed abx in labor. NST reactive. RTC 1 week. Flowsheet Date 09/12/2024 Thomas Score Blood Edema Fundus Height Fundus Units Glucose Ketones Leukocytes Nitrite Labor Signs Protein Cervic Dilation Cervic Effacement Cervic Station Type Weight in lbs Pre/Post Dialysis Refused BP Diastolic BP Location Tested BP Systolic BP Type Fetus Heart Rate Present Fetus Movement Comments Flowsheet Date 09/12/2024 Thomas Score Blood Edema Fundus Height Fundus Units Glucose Ketones Leukocytes Nitrite Labor Signs Protein Cervic Dilation Cervic Effacement Cervic Station Type Weight in lbs Pre/Post Dialysis Refused Weight 246.869483534157 BP Diastolic BP Location Tested BP Systolic BP Type 65 98 Fetus Heart Rate Present Fetus Movement Comments Flowsheet Date 09/12/2024 Thomas Score Blood Edema Fundus Height Fundus Units Glucose Ketones Leukocytes Nitrite Labor Signs Protein Cervic Dilation Cervic Effacement Cervic Station neg none Type Weight in lbs Pre/Post Dialysis Refused Weight 246.149101058207 BP Diastolic BP Location Tested BP Systolic BP Type 65 L arm 98 sitting Fetus Heart Rate Present A Present Fetus Movement A Yes Comments Good movement. No cram ping or bleeding. EFW 78%, vertex, normal. BPP 10/10. RTC 1 week. Flowsheet Date 09/18/2024 Thomas Score Blood Edema Fundus Height Fundus Units Glucose Ketones Leukocytes Nitrite Labor Signs Protein Cervic Dilation Cervic Effacement Cervic Station Type Weight in lbs Pre/Post Dialysis Refused BP Diastolic BP Location Tested BP Systolic BP Type Fetus Heart Rate Present Fetus Movement Comments Flowsheet Date 09/18/2024 Thomas Score Blood Edema Fundus Height Fundus Units Glucose Ketones Leukocytes Nitrite Labor Signs Protein Cervic Dilation Cervic Effacement Cervic Station Type Weight in lbs Pre/Post Dialysis Refused BP Diastolic BP Location Tested BP Systolic BP Type Fetus Heart Rate Present Fetus Movement Comments Flowsheet Date 09/18/2024 Thomas Score Blood Edema Fundus Height Fundus Units Glucose Ketones Leukocytes Nitrite Labor Signs Protein Cervic Dilation Cervic Effacement Cervic Station Type Weight in lbs Pre/Post Dialysis Refused Weight 245.435924728102 BP Diastolic BP Location Tested BP Systolic BP Type 80 L arm 116 sitting Fetus Heart Rate Present A 123 Fetus Movement A Yes Comments Doing well, no issues. Good movement. No bleeding, LOF, or regular contractions. BPP 10/10. Induction on 09/24. Labor precautions reviewed. Menstrual History Last Menstrual Date Menses Monthly On Bcp Conception Prior Menses Frequency Hcg Plus Date Menarche Onset Age Delivery Information Delivery Date Delivery Type Labor Anesthesia Weeks Gestation Incision Type Labor Labor Length Hrs Delivered By Post Complications Tubal Sterilization Discharge Date Comments Discharge Information Feeding Method Contraceptive Method Maternal HG B and HCT Levels
[2024-09-24 06:54] LABS: Hematocrit 34.5 % (37.0-47.0); Hemoglobin 11.1 g/dL (12.0-15.0); Immature Granulocyte Percent A 1.0 % (0-0.5); Lymphocytes Absolute Auto 2.48 K/mm3 (0.9-3.2); Mean Corpuscular HGB Conc 32.2 g/dl (32-36); Mean Corpuscular Hemoglobin 28.4 pg (26-34); Mean Corpuscular Volume 88.2 fl (80-100); Nucleated Red Blood Cells Absolute Auto 0.000 K/mm3 (0.0-0.012); Nucleated Red Blood Cells Perc 0.0 % (0.0-0.2); Platelet Count Result 302 k/mm3 (150-375); Red Blood Count 3.91 M/mm3 (4.2-5.4); White Blood Count 10.5 K/mm3 (4.5-10.0)
--- NOTE | 2024-09-24 06:56 | P.PNAN_ITS ---
Anes - Eval Pre Procedure Procedure: labor epidural Date/Time: 09/24/24 06:56 Surgeon: yolie Preop Diagnosis: pain during labor Pre Op Diagnosis: iol Patient Data Age: 29 Gender: F Height: Weight: Allergies Allergy/AdvReac Type Severity Reaction Status Date / Time Red Pepper Allergy Unknown Uncoded 08/10/17 15:49 Home Medications ?Medication ?Instructions ?Recorded ?Confirmed ?Type cyclobenzaprine 5 mg tablet 5 mg PO TID PRN muscle spasm #14 01/20/23 Rx tabs ibuprofen 600 mg tablet 600 mg PO Q6H PRN Cramping #30 tabs 01/20/23 Rx Laboratory Tests 09/24/24 06:48 WBC Pending RBC Pending Hgb Pending Hct Pending MCV Pending MCH Pending MCHC Pending RDW Pending Plt Count Pending MPV Pending Immature Gran % (Auto) Pending Neut % (Auto) Pending Lymph % (Auto) Pending [place] % (Auto) Pending Eos % (Auto) Pending Baso % (Auto) Pending Lymph # (Auto) Pending [place] # (Auto) Pending Eos # (Auto) Pending Baso # (Auto) Pending Abs Immat Gran (auto) Pending Absolute Neuts (auto) Pending Absolute Nucleated RBC Pending Nucleated RBC % Pending Patient hx anesthesia problems: none Family hx anesthesia problems: none Results Review: All pre-operative results and documents have been reviewed as part of the pre- operative evaluation. [facility] Past Medical History Medical History (Updated 09/24/24 @ 06:57 by Miryam Bearden CRNA) IUP (intrauterine ), incidental Obesity Family History Family History Grandparent Family history of cataracts Father Family history of alcoholism Family history of liver disease Family history of kidney disease Social History Social History Smoking packs per day: 1 Smoking cigarettes per day: 20.0 Years smoked: 8 Smoking pack-years: 8.00 Smoking status: Former smoker Tobacco type: cigarettes Second hand tobacco smoke exposure: No Smoking end date: 04/21/22 Alcohol intake: never Substance use: never Lack of Transportation: No Lack of Food: Never True Current Housing: I Have Housing Concerned About Future Housing: No Difficulty Paying Gas/Electric Bills: No Difficulty Paying for Meds: No Currently Unemployed: No Education: High School Diploma/GED Difficulty w/ Childcare or Family Care: No Spiritual care concerns: No Exam Day of Procedure 09/24/24 06:56
[2024-09-24] MEDS: AMPICILLIN 2 GM/NS 100 ML 2 GM/100 ML BAG IVPB (06:57)
[2024-09-24] MEDS: LACTATED RINGERS 1,000 ML 125 ML IV CONT ×3 (06:57→14:00)
[2024-09-24] MEDS: OXYTOCIN 30 UNITS/NS 500 ML 30 UNITS/500 ML BAG IV CONT (06:58)
[2024-09-24 07:31] LABS: Syphilis IgG/IgM Antibody Non-Reactive (Nonreactive)
--- NOTE | 2024-09-24 08:47 | PM.IMHP ---
H&P: HPI History of Present Illness Date/Time: 09/24/24 08:47 Chief Complaint: elective induction of labor Narrative: Patient is a 29 year old who presents for elective induction of labor. Her has been overall uncomplicated. She denies strong contractions, leakage of fluid, or vaginal bleeding. Good movement. Review of Systems Review of Systems: All systems reviewed & are unremarkable except as noted in HPI and below PMFSH Past Medical History Medical History IUP (intrauterine ), incidental Obesity Family History Family History Grandparent Esophageal cancer Father Family history of kidney disease Family history of liver disease Family history of alcoholism Mother Graves' disease Other Family history of cataracts Social History Social History Smoking packs per day: 1 Smoking cigarettes per day: 20.0 Years smoked: 8 Smoking pack-years: 8.00 Smoking status: Former smoker Tobacco type: cigarettes Second hand tobacco smoke exposure: No Smoking end date: 03/21/22 Alcohol intake: never Substance use: former Do You Feel Safe in your Home?: Yes Lack of Transportation: No Lack of Food: Never True Current Housing: I Have Housing Concerned About Future Housing: No Difficulty Paying Gas/Electric Bills: No Difficulty Paying for Meds: No Currently Unemployed: No Education: High School Diploma/GED Difficulty w/ Childcare or Family Care: No Spiritual care concerns: No Meds Home Medications and Allergies Home Medications ?Medication ?Instructions ?Recorded ?Confirmed ?Type cyclobenzaprine 5 mg tablet 5 mg PO TID PRN muscle spasm #14 01/20/23 09/24/24 Rx tabs ibuprofen 600 mg tablet 600 mg PO Q6H PRN Cramping #30 tabs 01/20/23 09/24/24 Rx vitamins no.119-iron 1 tablet PO DAILY 09/24/24 09/24/24 History fumarate 29 mg-folic acid 1 mg tablet (Se- 19) sertraline 100 mg tablet 100 mg PO DAILY 09/24/24 09/24/24 History Allergies Allergy/AdvReac Type Severity Reaction Status Date / Time mold Allergy Cough Verified 09/24/24 07:05 Red Pepper AdvReac Unknown Headache Uncoded 09/24/24 07:05 Vital Signs Vital Signs - 24 hr 09/24/24 07:00 09/24/24 07:05 09/24/24 07:08 Temperature 97.1 F L Pulse Rate 65 65 Blood Pressure 118/62 118/62 Pulse Oximetry Oxygen Delivery 09/24/24 07:13 09/24/24 07:31 09/24/24 08:01 Temperature Pulse Rate 74 80 Blood Pressure 126/74 121/67 Pulse Oximetry Oxygen Delivery Room Air 09/24/24 08:31 09/24/24 08:39 09/24/24 08:40 Temperature Pulse Rate 72 138 H Blood Pressure 116/67 125/110 H Pulse Oximetry 98 Oxygen Delivery 09/24/24 08:44 09/24/24 08:46 Temperature Pulse Rate 71 Blood Pressure 121/69 Pulse Oximetry 99 Oxygen Delivery Exam Const: General: comfortable and no acute distress Eyes: General: appearance normal, both eyes and all related structures Resp: Effort & Inspection: normal respiratory effort Cardio: Rate: regular rate : Other: SVE /-1 Extrem: General: normal to inspection Psych: Mental Status: mental status grossly normal H&P: Results Labs Labs: Short CBC 09/24/24 Range/Units 06:48 WBC 10.5 H (4.5-10.0) K/mm3 Hgb 11.1 L (12.0-15.0) g/dL Hct 34.5 L (37.0-47.0) % Plt Count 302 (150-375) k/mm3 Assessment and Plan Assessment and plan (1) Encounter for elective induction of labor: Code(s): Z34.90 - Encounter for supervision of normal , unspecified, unspecified trimester Status: Acute Assessment and Plan: - FHR category I - AROM performed, small amount of clear fluid; SVE /-1 - pitocin per protocol - GBS positive, ampicillin per protocol
[2024-09-24] MEDS: CALCIUM CARBONATE (TUMS) 500 MG (200 MG ELEMENTAL) PO (10:01)
[2024-09-24] MEDS: AMPICILLIN 1 GM/NS 50 ML 1 GM/50 ML BAG IVPB ×2 (11:03→15:05)
[2024-09-24] MEDS: ONDANSETRON INJ 4 MG/2 ML VIAL IV PUSH (12:09)
--- NOTE | 2024-09-24 14:37 | PC.NURSE ---
1430 OG tube placed 22@lip. 20 ml air. 2 ml thick, clear mucus obtained. Infant tolerated well. O2 sats remained 99%. OG removed.
--- NOTE | 2024-09-24 18:34 | PM.OBPRVD ---
OB - Vaginal Delivery Note Procedure Delivery date: 09/24/24 Events: Elective Induction of Labor Intrapartal Events: Other (Shoulder dystocia) Induction method: AROM and Per Pitocin Protocol Delivery monitor: External FHT and External Uterine Route of delivery: Episiotomy description: None Laceration Description: None Specimen: No Quantitative Blood Loss (ml): 50 Anesthesia type: Epidural Disposition: Floor Complications: No immediate complications Narrative: See H&P and notes for details on patient's admission and labor. She progressed to complete cervical dilation and at the appropriate time began pushing. With adequate expulsive efforts by the mother, the baby's head was delivered without difficulty. Nuchal cord was not present. The baby's right shoulder was anterior but did not deliver spontaneously. A shoulder dystocia was identified and relieved with suprapubic pressure, McRobert's manuever, and posterior shoulder shrug. The shoulder dystocia lasted 15 secounds. The posterior shoulder and the rest of the baby delivered without difficulty. The umbilical cord was doubly clamped and cut. Care of the infant was then assumed by the nursing staff. The was moving both upper extremities equally after delivery. Baby Date of : 09/24/24 Time of : 18:19 Gestational Age by Date: 40 Infant gender: Male Weight (pounds): 8 Weight (ounces): 7 presentation: vertex position: Left Occiput Anterior Placenta delivery description: Expressed Cord Vessel Description: 3 Vessels and Clamped/Cut
[2024-09-24] MEDS: ACETAMINOPHEN 325 MG TABLET 650 MG PO (23:20)
[2024-09-24] MEDS: IBUPROFEN 600 MG TABLET PO (23:20)
[2024-09-25 01:30] VITALS: BP 107/64; PULSE 64; RESP 18; TEMP 36.7; O2SAT 99
[2024-09-25] MEDS: ACETAMINOPHEN 325 MG TABLET 650 MG PO ×3 (05:05→17:08)
[2024-09-25 05:06] LABS: Hematocrit 30.7 % (37.0-47.0); Hemoglobin 9.8 g/dL (12.0-15.0)
--- NOTE | 2024-09-25 07:23 | WPDANLDPN2 ---
Anes-Prog Note L&D Date/Time: 09/25/24 07:23 Comfortable throughout: labor and delivery Neuraxial method: epidural Epidural/Spinal procedure site: clean & non-tender Neuro status: Neuro function grossly intact. Cardiovascular status: normal Respiratory status: normal Airway patency: baseline Mental status: baseline Post-Op hydration status: normal Vital Signs: Last Vital Signs Temp 36.7 C 09/25/24 01:30 Pulse 64 09/25/24 01:30 Resp 18 09/25/24 01:30 BP 107/64 09/25/24 01:30 Pulse Ox 99 09/25/24 01:30 O2 Del Method Room Air 09/24/24 07:13 Pain score (VAS): 1 I/O: Intake & Output 09/24/24 09/24/24 09/25/24 15:59 23:59 07:59 Intake Total 2150 Output Total 100 Balance 2150 -100 Post-procedural complaints: none Patient feedback: Patient satisfied with anesthetic care.
[2024-09-25 07:35] VITALS: BP 107/62; PULSE 63; RESP 16; TEMP 36.3; O2SAT 99
--- NOTE | 2024-09-25 09:00 | PC.NURSE ---
Pt states Dr. Malagon told her that her IV could be taken out since her Hemaglobin was back and WNL
[2024-09-25] MEDS: DOCUSATE SODIUM 100 MG CAPSULE PO ×2 (09:03→17:08)
[2024-09-25] MEDS: MULTIVIT/MIN/PREN/FOL AC/IRON TABLET 1 TAB PO (09:03)
--- NOTE | 2024-09-25 09:31 | P.PNOB_ITS ---
OB - PN: Subj Subjective Date/time seen: 09/25/24 09:31 Interval history: PPD#1 Doing well, some back pain around epidural, will try lidocaine patch Tolerating general diet Voiding without issue Ready for discharge home today OB - PN: Obj Data Labs 09/25/24 04:47 Labs: Laboratory Results - last 24 hr 09/25/24 04:47 Hgb 9.8 L Hct 30.7 L OB - PN A/P Assessment and Plan (1) (spontaneous vaginal delivery): Code(s): O80 - Encounter for full-term uncomplicated delivery Status: Acute Assessment and Plan: - complicated by 15 second shoulder dystocia Plan day: 1 Plan: routine care and discharge home Time Spent With Patient Time: Total time spent is greater than 50% in coordination of care (as documented) at patient's floor/unit and/or counseling patient: Review of Systems 2 Review of Systems: All systems reviewed & are unremarkable except as noted in HPI and below Exam 2 Const: General: comfortable and no acute distress O rientation/consciousness: patient oriented x3 Resp: Effort & Inspection: normal respiratory effort
[2024-09-25] MEDS: LIDOCAINE 5% PATCH 1 PATCH TRANSDERM (10:06)
[2024-09-25] MEDS: IBUPROFEN 600 MG TABLET PO ×2 (10:56→17:08)
[2024-09-25 12:08] VITALS: BP 116/65; PULSE 66; RESP 16; TEMP 37; O2SAT 99
--- NOTE | 2024-10-01 13:36 | PM.OBDSVD ---
DS: Admitting Diagnosis Discharge Date 09/25/24 Admitting Diagnosis elective induction of labor DS: Discharge Diagnosis Discharge Diagnosis (1) (spontaneous vaginal delivery): Code(s): O80 - Encounter for full-term uncomplicated delivery Status: Acute OB - DS: Summary OB Procedures : None OB Procedures Intrapartum: Spontaneous Vag Delivery OB Procedures: : None Peripartum Data Laceration Description: None Episiotomy description: None Time Spent with Patient Time attestation: Total time spent providing and/or coordinating discharge services: Discharge Plan Discharge Attending physician on discharge: Paul Malagon Consulting providers: Miryam Bearden; Alonso Arredondo Discharging Clinician: Paul Malagon Patient Disposition: Home Activity: may shower, as tolerated and pelvic rest Diet: as tolerated Discharge Instructions: Education: Mom and Baby Guide Given to: Mother Follow-Up: Call your delivering provider's office for an appointment to be seen in: 4 Weeks Mom and baby should come to the [facility] for the follow-up appointment. Appointment Date/Time: September 26, 2024 at 10:00 am What to expect at your follow-up visit: Blood Pressure Check Physical Assessment Call [phone] if you are unable to keep your appointment time. BREAST CARE: * Wear a snug supportive bra. * For engorgement discomfort: Bottle Feeding: * May apply ice packs EPISIOTOMY/PERINEAL CARE: * Until bleeding stops, use your fabi bottle after urinating * Change your pad frequently throughout the day * You may take sitz baths several times a day (fill your bathtub with warm water and soak for 20 minutes.) Do NOT bathe in the water * No tub baths until seen by your physician - You may shower ACTIVITY: * Rest as much as possible. * Do not exercise or lift anything heavier than your baby (such as laundry or other children.) * Avoid stairs or driving as much as possible. * Do not put anything into the vagina. No douching, tampons, or sexual activity until seen by physician. NOTIFY PHYSICIAN IF YOU HAVE ANY QUESTIONS OR IF ANY OF THE FOLLOWING SYMPTOMS OCCUR: * If your episiotomy or incision becomes red, swollen, or more painful than what you have experienced in the hospital. * If your vaginal bleeding becomes foul smelling. * If your vaginal bleeding becomes more heavy than a period or if your bleeding changes from pink to bright red. However, you may pass an occasional walnut-sized clot once or twice for the first week . * If you experience a sharp, shooting pain in you calves. * If you discover a hard, reddened area on your breast or if you experience flu-like symptoms. DIET: * Eat regular, well-balanced meals. * Drink plenty of fluids daily. If , drink to thirst. Patient Language: Irish Stand Alone Forms: General Discharge Information Follow-up/Referrals: Paul Malagon MD [Physician] - 4 Weeks Discharge Medications: New docusate sodium 100 mg Capsule 100 mg PO BID PRN (Reason: Constipation) Qty: 60 0RF ibuprofen 600 mg Tablet 600 mg PO Q6H PRN (Reason: Cramping) Qty: 30 0RF Continued sertraline 100 mg tablet 100 mg PO DAILY Se-Janell 19 29 mg iron- 1 mg tablet 1 tablet PO DAILY Discontinued ibuprofen 600 mg Tablet 600 mg PO Q6H PRN (Reason: Cramping) Qty: 30 0RF cyclobenzaprine 5 mg tablet 5 mg PO TID PRN (Reason: muscle spasm) Qty: 14 0RF Date of admission: 09/24/24 06:08 Primary Care Provider: PHYSICIAN,ANTIQUE [employer] REPRODUCER Admitting Provider: Paul Malagon Attending physician on admission: Paul Malagon Condition: Stable
== END 2024-09-25 20:22 | disposition home or self-care (01) | DRG 560 ==
LOC: ANHLDR 06:13 → ANHOB2 21:07
PROVIDERS: Admitting Provider Obstetrics & Gynecology; Visit Provider Obstetrics & Gynecology
DX: O99.214 Obesity complicating childbirth (principal); O99.824 Streptococcus B carrier state complicating childbirth; O66.0 Obstructed labor due to shoulder dystocia; Z3A.40 40 weeks gestation of pregnancy; Z37.0 Single live birth; Z87.891 Personal history of nicotine dependence
CPT/HCPCS: 36415; 85014; 85018; 85025; 86593; 86850; 86900; 86901; A9270; J0290; J2405; J2590; J2795; J7120